=== PATIENT | female | born 1995 | race Caucasian/White ===

== ENCOUNTER 2024-11-05 22:41 | Emergency (ER) | payer BC, SELFPAY ==
[2024-11-05 22:45] VITALS: BP 152/104
[2024-11-06 01:49] VITALS: BMI 35.5
[2024-11-06 01:53] VITALS: BP 138/91
--- NOTE | 2024-11-06 01:53 | EDRN ---
Pt has been testing to see if she miscarried about 2 weeks ago. Pt has hag general lower abd pain, sometimes cervix pain and sometimes LLQ pain. Pt noted vaginal bleeding around 2100 last night. Blood described as pinkish red, no clots. Pt saw
it with wiping initially. While in waiting room, there was a little on the pad but it has decreased. Pt had not bled since early last week. Pain is now migrating around her abdomen which she has not been able to control with Excedrin XS, baths,
warm compresses and ice. Last HCG was done at [facility] on Thursday and was 25-26, steadily decreasing. Pt thinks she is still bleeding. Pt had similar symptoms before her September 16 2024 period but was not confirmed at that time.
confirmed for first time now. Pt has felt a little dizzy and weak, little nausea. No cp, sob, vomiting.
[2024-11-06 02:00] VITALS: BP 138/93
[2024-11-06 03:03] LABS: Hematocrit 36.7 % (37.0-47.0); Hemoglobin 13.4 g/dL (12.0-16.0); Mean Corp Hgb Conc. 36.5 g/dL (33.0-37.0); Mean Corpuscular Hgb 31.5 pg (27.0-31.0); Mean Corpuscular Volume 86.2 fL (81.0-99.0); Mean Platelet Volume 9.1 fL (7.4-10.4); Platelet Count 268 10^3/uL (130-400); Red Blood Cell Count 4.26 10^6/uL (4.20-5.40); Red Cell Dist. Width 12.6 % (11.5-14.5); White Blood Cell Count 17.1 10^3/uL (4.8-10.8)
--- NOTE | 2024-11-06 03:04 | ED.GENMED ---
History of Present Illness
General
Chief Complaint: Vaginal Bleeding
Source: patient
Exam Limitations: none
Time Seen by Provider: 11/06/24 02:42
Nursing documentation reviewed up to this point in time: agreed with
History of Present Illness
History of Present Illness:
This is a 29-year-old woman who is 1 para 0 with last menstrual period September 16. Following with [facility]USTRIAL MAINTENANCE INSTRUCTOR at [facility], Dr. Garnett.
She admits to some vaginal bleeding 2 weeks ago. Evaluated by vessel welder and had follow-up hCGs that were trending up only slightly and then repeat hCG on November 04 patient states hCG trended down 10-20 points.
She began with some vaginal bleeding tonight, light bleeding that she noted with wiping and a small amount of blood with small clot on her pad this evening. She has also had some intermittent left lower quadrant pain, mildly 2 weeks ago and then
again intermittent since yesterday but more persistent tonight and now radiating across her lower back. She admits to mild nausea without vomiting. No dizziness nor lightheadedness.
Her only daily medications are Zoloft, vitamins.
Past History
Past History
ED Past Medical History: Psychiatric
ED Past Surgical History: None
Social History
Tobacco: Non-smoker
Alcohol: None
Living: with family
Family History
Family History: Other (Noncontributory)
Phy Exam
Physical Exam
Physical Exam:
GENERAL: 29-year-old woman appears her stated age, awake and alert, pleasant, appears in no acute distress.
EYE: anicteric
NECK: Supple, nontender, no meningismus, no significant adenopathy.
ENT: oral mucosa is moist. No rhinorrhea.
CARDIAC: Regular rate and rhythm. no murmur.
LUNGS: Clear breath sounds bilaterally, no acute respiratory distress, no wheezes/rales/rhonchi
ABDOMEN: Soft, nondistended, minimal tenderness left lower quadrant with deep palpation only, no r/g, no cvat. normoactive BS.
NEUROLOGICAL: Alert and oriented x3, no focal neuro deficits.
SKIN: Warm and dry, normal color, skin intact. No rash.
MUSCULOSKELETAL: No C/C/E. peripheral pulses are full and equal b/l. No palpable tenderness.
PSYCH: Normal and appropriate interaction.
Course
Orders/Labs/Results
Orders:
Orders
11/06/24 00:07
Test Result ONCE
11/06/24 02:02
US W Transvaginal Urgent
Reason For Exam: bleeding, spontaneous miscarriage
11/06/24 02:10
ABO [Blood Group&Type] Urgent
Complete Blood Count/No Diff Urgent
HCG, Beta Quantitative [Beta HCG Quantitative] Urgent
Is this a screen?: No
11/06/24 03:31
ABO2 Urgent
BBK Wristband Number:
Associate notified that ABO2 has been ordered: MARISABEL
Date: 11/06/24
Time: 03:03
Tumbling And Rolling Supervisor ID: [id number]
Abnormal Lab Results
11/06/24
02:10
WBC 17.1 H 10^3/uL
(4.8-10.8)
Hct 36.7 L %
(37.0-47.0)
MCH 31.5 H pg
(27.0-31.0)
11/06/24 02:10
11/06/24 00:07
Vital Signs
Initial and Last Documented VS:
Initial Vital Signs
Temp Pulse Resp BP Pulse Ox
98 F 86 18 152/104 99
11/05/24 22:45 11/05/24 22:45 11/05/24 22:45 11/05/24 22:45 11/05/24 22:45
Last Documented Vital Signs
Temp Pulse Resp BP Pulse Ox
98 F 60 14 132/70 99
11/06/24 01:53 02/23/25 06:05 11/06/24 06:05 11/06/24 06:05 11/06/24 06:06
MDM/Problems Addressed
Differential Diagnosis Includes:
Concern for incomplete miscarriage, concern for ectopic .
Labs are pending.
Will check ultrasound.
*Radiology
Radiology exam reviewed: radiology read reviewed
*Pulse Oximetry
Patient hypoxic: no
*Critical Care Note
Total Time (30-74mins, 75-104mins- exclusive of procedures): Not Applicable
Update Note
Update Note:
04:30
Patient remains hemodynamically stable.
No significant vaginal bleeding.
Continues with mild left lower quadrant pain.
Ultrasound concerning for left pelvic ectopic. There is no IUP. There is a 2.4 x 2 cm cystic structure left adnexa with small amount of vascularity and small amount of free fluid.
hCG is quite low at at 11.36. Patient states hCG over 1 week ago was 30, 2 days later was 40 but then 1 week later dropped to 20. This was 2 days ago on Thursday.
Case discussed with INDUSTRIAL MAINTENANCE INSTRUCTOR, Dr. Dobbs. Will be in to evaluate.
06:00
Patient evaluated at bedside by Dr. Dobbs.
Due to significantly low hCG, essentially nontender pelvic exam she feels she is safe to be discharged to home with strict return precautions and plan for follow-up with her primary vessel welder at [facility].
ED Attending Note
-
Portions of this chart may have been created with voice recognition software.� Occasional wrong word or��sound alike� substitutions may have occurred due to the inherent limitations of voice recognition software.
Discharge Plan
Departure
Patient Disposition: Home (Routine Discharge)
Patient with high blood pressure during this ER visit?: No
Condition: Good
Discharge Problem:
Ectopic of left ovary
Instructions: Ectopic (DC)
Prescriptions:
No Action
sertraline [Zoloft] 100 mg Tablet
100 mg PO DAILY
Referrals:
Patti Dobbs MD [Active] - As needed
NONE,* [Family Provider] -
Activity Restrictions/Additional Instructions:
Follow-up with your vessel welder this week for recheck.
If pain worsens or if you develop a fever, severe bleeding or any other worrisome symptom, prompt return to the ER for further evaluation.
Interventions
Interventions:
*Risk Screen - Suicide Last Done: 11/05/24 22:45
*General Assessment Last Done: 11/06/24 01:50
*Neglect/Abuse Screening Last Done: 11/06/24 01:50
ED- Fall Risk Assessment Last Done: 11/06/24 02:18
*ED COVID-19 Vaccine History Last Done: 11/06/24 01:50
*Nursing Disposition Last Done: 11/06/24 06:15
ED-Female Genitourinary Assessment Last Done: 11/06/24 02:18
Discharge Date and Time
Discharge Date/Time: 11/06/24 06:15
Print Language: SINHALA
[2024-11-06 03:36] LABS: Beta HCG Quantitative 11.36 mIU/ml
[2024-11-06 04:25] VITALS: BP 133/88
[2024-11-06 06:05] VITALS: BP 132/70
== END 2024-11-06 06:15 | disposition home or self-care (01) ==
LOC: EMR 22:41
PROVIDERS: Emergency Medicine; EMERGENCY PHYSICIAN Emergency Medicine
DX: O00.202 Left ovarian pregnancy without intrauterine pregnancy (principal); Z3A.00 Weeks of gestation of pregnancy not specified; Z79.899 Other long term (current) drug therapy
CPT/HCPCS: 99284; 76801; 76817; 84702; 85027; 86900; 86901